=== PATIENT | male | born 1980 ===

== ENCOUNTER 2017-08-29 08:12 | Emergency (ER) | payer SELFPAY ==
[2017-08-29 08:32] VITALS: BP 135/74; PULSE 69; TEMP 97.2; O2SAT 99
[2017-08-29] MEDS ORDERED: Tmp-Smz 800 mg-160 mg DS Tab PO STA (09:14)
[2017-08-29] MEDS ORDERED: Bacitracin 500 Units/gm Oint Foilpak UD TOP ONE (09:14)
--- NOTE | 2017-08-29 09:17 | C.PDOC ---
History Of Present Illness 37 yr old male presents to the ER with complaints of pain and swelling to the right knee for the past 2 days. Patient believes an insect might of bit him. Patient denies any medical history, trauma, discharge from the area, fever, chills, leg pain, foot pain, weakness or numbness. Time Seen by Provider: 08/29/17 09:06 Chief Complaint (Nursing): Abnormal Skin Integrity History Per: Patient History/Exam Limitations: no limitations Onset/Duration Of Symptoms: Days (2) Current Symptoms Are (Timing): Still Present Past Medical History Reviewed: Historical Data, Nursing Documentation, Vital Signs Vital Signs: Last Vital Signs Temp 97.2 F L 08/29/17 08:29 Pulse 69 08/29/17 08:29 Resp 18 08/29/17 09:27 BP 135/74 08/29/17 08:29 Pulse Ox 99 08/29/17 09:19 Family History: States: No Known Family Hx - Social History Hx Alcohol Use: No Hx Substance Use: No - Immunization History Hx Tetanus Toxoid Vaccination: Yes Hx Influenza Vaccination: No Hx Pneumococcal Vaccination: No Review Of Systems Except As Marked, All Systems Reviewed And Found Negative. Constitutional: Negative for: Fever, Chills Musculoskeletal: Positive for: Other ((+) pain and swelling to the right knee). Negative for: Leg Pain, Foot Pain Neurological: Negative for: Weakness, Numbness Physical Exam - Physical Exam Appears: Non-toxic, No Acute Distress Skin: Warm, Dry, No Rash Oral Mucosa: Moist Cardiovascular: Rhythm Regular, No Murmur Respiratory: Normal Breath Sounds, No Rales, No Rhonchi, No Stridor, No Wheezing Gastrointestinal/Abdominal: Normal Exam, Soft, No Tenderness, No Guarding, No Rebound Extremity: Normal ROM, No Calf Tenderness, Other (Right Knee - 2cm area of fluctuance and erythema with central pustule, draining purulent discharge) Neurological/Psych: Oriented x3, Normal Speech, Normal Motor, Normal Sensation ED Course And Treatment O2 Sat by Pulse Oximetry: 99 (RA) Pulse Ox Interpretation: Normal Progress Note: PLAN: Keflex PO, Bactrim PO, Wound Culture & Reeval. I circled the area with a skin marker to track the growth, also pus was expressed and wound culture was sent and the area was dressed. Patient sent home with antibiotics and advised to return to the ER for concerning symptoms. Disposition Counseled Patient/Family Regarding: Diagnosis, Need For Followup, Rx Given - Disposition Referrals: [facility] [Outside] Disposition: HOME/ ROUTINE Disposition Time: 09:25 Condition: STABLE Additional Instructions: FOLLOW UP WITH YOUR DOCTOR/CLINIC IN 1-2 DAYS USE MEDICATIONS DIRECTED APPLY WARM COMPRESSES TO AREA SEVERAL TIMES DAILY RETURN TO ER IF SYMPTOMS WORSEN Prescriptions: Cephalexin [Keflex] 500 mg PO BID #14 capsule Naproxen 375 mg PO BID PRN #20 tablet PRN Reason: pain Sulfamethoxazole/Trimethoprim [Bactrim DS 800 mg-160 mg] 1 tab PO BID #14 tab Instructions: Abscess (ED) Forms: [employer] (Portuguese) Print Language: TURKMEN - Clinical Impression Clinical Impression: Abscess of right knee - Scribe Statement The provider has reviewed the documentation as recorded by the Manuelito Rose Provider Attestation: All medical record entries made by the Manuelito were at my direction and personally dictated by me. I have reviewed the chart and agree that the record accurately reflects my personal performance of the history, physical exam, medical decision making, and the department course for this patient. I have also personally directed, reviewed, and agree with the discharge instructions and disposition.
[2017-08-29] MEDS ORDERED: Tmp-Smz 800 mg-160 mg DS Tab ONE (09:21)
[2017-08-29] MEDS ORDERED: Bacitracin 500 Units/gm Oint Foilpak UD ONE (09:22)
[2017-08-29 09:28] VITALS: RESP 18
== END 2017-08-29 09:27 | disposition home or self-care (01) ==
LOC: C.ER 08:12
DX: L02.415 Cutaneous abscess of right lower limb (principal)